=== PATIENT | female | born 1975 | race Caucasian/White ===

== ENCOUNTER 2019-05-03 03:28 | Emergency (ER) | payer OTHER ==
[2019-05-03 04:00] VITALS: RESP 18
[2019-05-03] MEDS ORDERED: SODIUM CHLORIDE 0.9% 1,000 ML IV STA (04:43)
--- NOTE | 2019-05-03 04:48 | ED ---
Abdominal Pain HPI - General Chief Complaint: Abdominal Pain Stated Complaint: Upper Abd Pain Time Seen by Provider: 05/03/19 04:11 Source: patient Mode of arrival: ambulatory Limitations: no limitations - History of Present Illness Initial Comments: Patient is a 43-year-old female presenting to the emergency department with chief complaint of abdominal pain. Patient reports epigastric abdominal pain that has been on and off for about 5 days. Patient reports the pain appears to be at night after she sleeps or couple hours. Patient does have a known hiatal hernia. Patient reports the pain is not related to food intake. Patient reports when the onset of pain is the pain is about 8 but now it is only a 4. Patient denies any nausea vomiting or diarrhea. Patient denies any vaginal discharge or bleeding. Patient denies any chance for possible . Patient denies increased urgency frequency or dysuria. Patient had a previous , cholecystectomy, appendix repair, endometriosis and a large right ovarian cyst. - Related Data Allergies Allergy/AdvReac Type Severity Reaction Status Date / Time azithromycin Allergy Nausea & Verified 05/03/19 04:01 Vomiting & Diarrhea Penicillins Allergy Rash/Hives Verified 05/03/19 04:01 Review of Systems ROS Statement: Those systems with pertinent positive or pertinent negative responses have been documented in the HPI. ROS Other: All systems not noted in ROS Statement are negative. Past Medical History Past Medical History: Diabetes Mellitus Additional Past Medical History / Comment(s): hiatal hernia History of Any Multi-Drug Resistant Organisms: None Reported Past Surgical History: Section, Cholecystectomy, Orthopedic Surgery Past Psychological History: No Psychological Hx Reported Smoking Status: Never smoker Past Alcohol Use History: None Reported Past Drug Use History: None Reported General Exam Limitations: no limitations General appearance: alert, in no apparent distress Head exam: Present: atraumatic, normocephalic, normal inspection Eye exam: Present: normal appearance, PERRL, EOMI Pupils: Present: normal accommodation ENT exam: Present: normal exam, normal oropharynx, mucous membranes moist, TM's normal bilaterally, normal external ear exam Neck exam: Present: normal inspection, full ROM Respiratory exam: Present: normal lung sounds bilaterally Cardiovascular Exam: Present: regular rate, normal rhythm, normal heart sounds GI/Abdominal exam: Present: soft, tenderness (Mild epigastric tenderness), normal bowel sounds. Absent: distended, guarding, rebound, mass, pulsatile mass, hernia Extremities exam: Present: normal inspection, full ROM, normal capillary refill, other (+2 ulnar radial pulses bilaterally.) Back exam: Present: normal inspection, full ROM Neurological exam: Present: alert, oriented X3 Psychiatric exam: Present: normal affect, normal mood Skin exam: Present: warm, intact, normal color Course Vital Signs 05/03/19 05/03/19 03:56 05:12 Temperature 97.5 F L 98.7 F Pulse Rate 82 68 Respiratory 18 18 Rate Blood Pressure 146/94 123/84 O2 Sat by Pulse 100 96 Oximetry Medical Decision Making - Medical Decision Making Patient is a 43-year-old female presenting to the emergency department with a chief complaint of abdominal pain. Patient reports the pain is in the epigast ebonie region and it only happens at night after she was asleep for a couple hours. Patient does have an established or hernia. Patient does any nausea vomiting or diarrhea. Patient isn't have any urinary symptoms. Patient reports the pain is not related to food intake. Patient denies any fevers or chills. Labs are unremarkable. CT is indicative of bilateral nonobstructing renal calculi. Blanca ent does have a small hiatal hernia. I suspect the pain the patient is experiencing to be due to the hiatal hernia as it only happens after she sleeps a couple of hours. Patient advised to follow-up with primary care. Patient advised to keep the bed elevated and night in order to help prevent her symptoms. Strict return parameters were thoroughly discussed the patient was understanding and agreeable. Case discussed with physician. - Lab Data Result diagrams: 05/03/19 04:18 05/03/19 04:18 Lab Results 05/03/19 05/03/19 05/03/19 Range/Units 04:18 04:18 05:43 WBC 8.6 (3.8-10.6) k/uL RBC 4.74 (3.80-5.40) m/uL Hgb 13.7 (11.4-16.0) gm/dL Hct 39.2 (34.0-46.0) % MCV 82.7 (80.0-100.0) fL MCH 28.9 (25.0-35.0) pg MCHC 34.9 (31.0-37.0) g/dL RDW 15.4 (11.5-15.5) % Plt Count 143 L (150-450) k/uL Neutrophils % 66 % Lymphocytes % 20 % Monocytes % 5 % Eosinophils % 7 % Basophils % 1 % Neutrophils # 5.6 (1.3-7.7) k/uL Lymphocytes # 1.7 (1.0-4.8) k/uL Monocytes # 0.4 (0-1.0) k/uL Eosinophils # 0.6 (0-0.7) k/uL Basophils # 0.1 (0-0.2) k/uL Sodium 136 L (137-145) mmol/L Potassium 4.2 (3.5-5.1) mmol/L Chloride 100 (98-107) mmol/L Carbon Dioxide 26 (22-30) mmol/L Anion Gap 10 mmol/L BUN 16 (7-17) mg/dL Creatinine 0.77 (0.52-1.04) mg/dL Est GFR (CKD-EPI)AfAm >90 (>60 ml/min/1.73 sqM) Est GFR (CKD-EPI)NonAf >90 (>60 ml/min/1.73 sqM) Glucose 184 H (74-99) mg/dL Calcium 9.3 (8.4-10.2) mg/dL Total Bilirubin 0.2 (0.2-1.3) mg/dL AST 24 (14-36) U/L ALT 26 (9-52) U/L Alkaline Phosphatase 80 (38-126) U/L Total Protein 6.7 (6.3-8.2) g/dL Albumin 3.8 (3.5-5.0) g/dL Amylase 44 (30-110) U/L Lipase 238 (23-300) U/L Urine Color Light Yellow Urine Appearance Clear (Clear) Urine pH 6.5 (5.0-8.0) Ur Specific Chapman 1.015 (1.001-1.035) Urine Protein Negative (Negative) Urine Glucose (UA) Negative (Negative) Urine Ketones Negative (Negative) Urine Blood Negative (Negative) Urine Nitrite Negative (Negative) Urine Bilirubin Negative (Negative) Urine Urobilinogen <2.0 (<2.0) mg/dL Ur Leukocyte Esterase Negative (Negative) Disposition Clinical Impression: Hiatal hernia Disposition: HOME SELF-CARE Condition: Stable Instructions (If sedation given, give patient instructions): Hiatal Hernia (DC) Additional Instructions: Please follow with primary care. Please keep that elevated when sleeping at night. Please return to emergency department if symptoms worsen. Is patient prescribed a controlled substance at d/c from ED?: No Referrals: Mary Heath MD [Primary Care Provider] - 1-2 days Time of Disposition: 06:33
[2019-05-03 04:49] LABS: ALT 26 U/L (9-52); AST 24 U/L (14-36); African American GFR (CKD) >90 (>60 ml/min/1.73 sqM); Albumin 3.8 g/dL (3.5-5.0); Alkaline Phosphatase 80 U/L (38-126); Amylase 44 U/L (30-110); Anion Gap 10 mmol/L; Blood Urea Nitrogen 16 mg/dL (7-17); Calcium 9.3 mg/dL (8.4-10.2); Carbon Dioxide 26 mmol/L (22-30); Chloride 100 mmol/L (98-107); Glucose 184 mg/dL (74-99); Potassium 4.2 mmol/L (3.5-5.1); Sodium 136 mmol/L (137-145); Total Bilirubin 0.2 mg/dL (0.2-1.3); Total Protein 6.7 g/dL (6.3-8.2)
[2019-05-03 05:03] LABS: Basophils # (A) 0.1 k/uL (0-0.2); Basophils % (A) 1 %; Eosinophils # (A) 0.6 k/uL (0-0.7); Eosinophils % (A) 7 %; HCT 39.2 % (34.0-46.0); HGB 13.7 gm/dL (11.4-16.0); Lymphocytes # (A) 1.7 k/uL (1.0-4.8); Lymphocytes % (A) 20 %; MCH 28.9 pg (25.0-35.0); MCHC 34.9 g/dL (31.0-37.0); MCV 82.7 fL (80.0-100.0); Mean Platelet Volume 6.8; Monocytes # (A) 0.4 k/uL (0-1.0); Monocytes % (A) 5 %; Neutrophils # (A) 5.6 k/uL (1.3-7.7); Neutrophils % (A) 66 %; Platelet Count 143 k/uL (150-450); RBC 4.74 m/uL (3.80-5.40); RDW 15.4 % (11.5-15.5); WBC 8.6 k/uL (3.8-10.6)
[2019-05-03 06:01] LABS: Appearance,Urine Clear (Clear); Bilirubin,Urine Negative (Negative); Blood,Urine Negative (Negative); Color,Urine Light Yellow; Glucose,Urine (UA) Negative (Negative); Ketones,Urine Negative (Negative); Leukocyte Esterase,Urine Negative (Negative); Nitrite,Urine Negative (Negative); PH, Urine 6.5 (5.0-8.0); Protein,Urine Negative (Negative); Specific Gravity,Urine 1.015 (1.001-1.035); Urobilinogen,Urine <2.0 mg/dL (<2.0)
--- NOTE | 2019-05-03 06:05 | CT ---
EXAM: CT Abdomen and Pelvis With Intravenous Contrast CLINICAL HISTORY: Epigastric pain. TECHNIQUE: Axial computed tomography images of the abdomen and pelvis with intravenous contrast. CTDI is 27.1 mGy and DLP is 476.7 mGy-cm. This CT exam was performed using one or more of the following dose reduction techniques: automated exposure control, adjustment of the mA and/or kV according to patient size, and/or use of iterative reconstruction technique. COMPARISON: None. FINDINGS: Lung bases: Unremarkable. No mass. No consolidation. Pleural space: No pulmonary nodules or pleural effusions at the lung bases. Heart: Heart is normal in size Mediastinum: Small hiatal hernia ABDOMEN: Liver: Mild fatty infiltration of the liver. Gallbladder and bile ducts: Status post cholecystectomy No ductal dilation. Pancreas: Unremarkable. No mass. No ductal dilation. Spleen: Numerous indeterminate splenic hypodensities are noted of uncertain etiology. Hounsfield measurements do not indicate simple cyst. Further workup is necessary. Magnetic resonance imaging of the abdomen with gadolinium and demonstration dynamic imaging is advised for further evaluation of the spleen. Adrenals: Unremarkable. No mass. Kidneys and ureters: No hydronephrosis. A 0.3 cm nonobstructing calculus in the lower pole region of the right kidney is noted. A second 0.2 cm nonobstructing calculus in the lower pole region of the right kidney is noted. A 0.2 cm nonobstructing calculus in the lower pole region of the left kidney is noted. Stomach and bowel: Small bowel loops are noted centrally within the abdomen extending to the left hypogastrium, best seen on series 202 image 54 with minimally thickened duncan. Early inflammatory or infectious etiologies cannot be excluded. Ischemic etiology is felt to be unlikely. No obstruction. PELVIS: Appendix: The appendix is best seen on series 201 image 69 and is unremarkable. Bladder: The bladder is grossly unremarkable. Reproductive: A 2.4 cm right ovarian cyst is noted. ABDOMEN and PELVIS: Intraperitoneal space: Unremarkable. No free air. No significant fluid collection. Bones/joints: Probable bone islands right femoral head. Mild osteoarthritic changes about the sacroiliac joints. No acute fracture. No dislocation. Soft tissues: Unremarkable. Vasculature: Unremarkable. No abdominal aortic aneurysm. Lymph nodes: Unremarkable. No enlarged lymph nodes. IMPRESSION: Small hiatal hernia. Focal splenic abnormalities of uncertain etiology. Magnetic resonance imaging of the abdomen with gadolinium administration and dynamic imaging is advised for further evaluation of the spleen. Mild fatty infiltration of the liver. Bilateral nonobstructing renal calculi. The appendix is normal. Diverticulosis without diverticulitis. Small bowel loops with minimally thickened duncan posteriorly based on early enteritis as discussed above. Simple right ovarian cyst based on Hounsfield evaluation.
[2019-05-03 06:34] VITALS: BP 116/54; PULSE 72; TEMP 98.2
== END 2019-05-03 06:50 | disposition home or self-care (01) ==
LOC: EC 03:28
DX: K44.9 Diaphragmatic hernia without obstruction or gangrene (principal); N20.0 Calculus of kidney; Z88.0 Allergy status to penicillin; Z88.1 Allergy status to other antibiotic agents; Z90.49 Acquired absence of other specified parts of digestive tract
CPT/HCPCS: 36415; 80053; 82150; 83690; 85025; 81003; 74177; 99284; 96360; Q9967

== ENCOUNTER 2019-06-02 08:30 | Day surgery (SDC) | payer OTHER ==
[2019-05-29 14:31] VITALS: BMI 32.8
[~2019-06-02 08:30] MED LIST: LACTATED RINGERS 1,000 ML IV SCH; LIDOCAINE 1% 20 ML VIAL (10MG/ML) FOR IV START INTRADERMA PRN
[2019-06-02 09:04] LABS: Glucose,Whole Blood 148 mg/dL (75-99)
[2019-06-02 09:05] VITALS: RESP 16; TEMP 97.3
[2019-06-02] MEDS ORDERED: fentaNYL (PF) 50 MCG/ML 2 ML AMP ONE (09:07)
[2019-06-02] MEDS ORDERED: MIDAZOLAM 2 MG/2 ML VIAL ONE (09:07)
[2019-06-02] MEDS ORDERED: PROPOFOL 10 MG/ML 20 ML VIAL IV ONE (09:07)
--- NOTE | 2019-06-02 09:44 | P.PCN ---
Date of Procedure: 06/02/19 Description of Procedure: BRIEF HISTORY: 43-year-old female who presents for outpatient EGD. The patient had been seen in clinic where she complained of epigastric abdominal pain. She is known history of a small hiatal hernia and also reported symptoms of belching, bilateral upper abdominal pain and reflux. PROCEDURE PERFORMED: Esophagogastroduodenoscopy with biopsy. PREOPERATIVE DIAGNOSIS: Epigastric abdominal pain. ESTIMATED BLOOD LOSS: Minimal. IV sedation per anesthesia. PROCEDURE: After informed consent was obtained, the patient was brought into the endoscopy unit. IV sedation was administered by Anesthesia under continuous monitoring. Initially the Olympus GIF-190 video endoscope was inserted into the mouth. Esophagus intubated without any difficulty. It was gradually advanced into the stomach and duodenum and carefully examined. The bulb and the second part of the duodenum appeared normal, with biopsies taken. The scope at this time was withdrawn to the stomach, adequately insufflated with air, and upon careful examination, mucosa of the antrum, body, cardia and the fundus appeared normal, except for some scattered erythema in the antrum and body suggestive of mild gastritis with biopsies taken. The scope was then withdrawn into the esophagus. The GE junction was located at 39 cm from the incisors, with a small 1 cm hiatal hernia noted. The esophagus appeared normal. There were no erosions or ulcerations seen and the patient tolerated the procedure well. IMPRESSION: 1. Mild gastritis antrum and body, biopsied. 2. Small hiatal hernia. 3. Duodenal biopsies. RECOMMENDATIONS: The findings of this examination were discussed with the patient and her boyfriend. Okay to resume diet. Okay to resume medications. Follow up with gastroenterology as previously scheduled. Await pathology from biopsies.
[2019-06-02 09:52] VITALS: BP 117/79; PULSE 74
== END 2019-06-02 10:35 | disposition home or self-care (01) ==
LOC: ORWHC2ENDO 08:30
PROVIDERS: ATTEND Internal Medicine
DX: K31.7 Polyp of stomach and duodenum (principal); K29.50 Unspecified chronic gastritis without bleeding; K44.9 Diaphragmatic hernia without obstruction or gangrene; I10 Essential (primary) hypertension; E11.9 Type 2 diabetes mellitus without complications; E07.9 Disorder of thyroid, unspecified; K21.9 Gastro-esophageal reflux disease without esophagitis; I25.2 Old myocardial infarction; Z90.49 Acquired absence of other specified parts of digestive tract; Z79.84 Long term (current) use of oral hypoglycemic drugs; Z79.890 Hormone replacement therapy; Z79.899 Other long term (current) drug therapy
CPT/HCPCS: 81025; 88305; 43239; J2250; J3010; J2704

== ENCOUNTER → 2019-06-08 | Outpatient (CLI) | payer OTHER ==
--- NOTE | 2019-06-09 00:45 | MR ---
EXAMINATION TYPE: MR abdomen wo/w con DATE OF EXAM: 06/08/2019 COMPARISON: CT scan 05/03/2019 HISTORY: Abnormal findings on DI imaging abd region, pain CONTRAST: Standard multiplanar, multisequence MRI departmental protocol utilizing 9 mL intravenous Gadavist merlyn olinium contrast. FINDINGS: Liver has fairly normal size and contour. There are no focal defect. Bile ducts are not dil ated. There is no sign of pleural effusion. Stomach appears normal. There is no evidence of pancreati c mass. There is no adrenal mass. Kidneys show normal size and contour. There is satisfactory contrast opacif ication of the kidneys. There is no hydronephrosis. There is no retroperitoneal adenopathy. There are multiple variable-sized high signal foci on the T2 images in the spleen. Most of these are small and the largest measures 17 mm. There is some internal nodularity on the T2 images. The contrast images appeared to show progressive enhancement of the nodules on the delayed images. Th is is consistent with multiple hemangiomata. There is no sign of ascites. Heart size is normal. IMPRESSION: Multiple small lesions in the spleen have enhancement features consistent with multiple hemangiomata.
== END | disposition home or self-care (01) ==
LOC: RADMRIMAIN 11:01
PROVIDERS: ATTEND Nurse Practitioner
DX: D73.89 Other diseases of spleen (principal)
CPT/HCPCS: 74183; A9585

== ENCOUNTER → 2019-06-12 | Outpatient (CLI) | payer OTHER ==
--- NOTE | 2019-06-15 09:00 | MM ---
Reason for exam: screening (asymptomatic). Last mammogram was performed 2 years and 3 months ago. History: Patient is nulliparous. Family history of breast cancer in mother at age 48. Taking hormonal contraceptives for 2 years. Physical Findings: A clinical breast exam by your physician is recommended on an annual basis and results should be correlated with mammographic findings. MG 3D Screening Mammo W/Cad Bilateral CC and MLO view(s) were taken. Prior study comparison: March 11, 2017, mammogram. The breast tissue is heterogeneously dense. This may lower the sensitivity of mammography. Increasing density of a left upper outer quadrant focal asymmetry 11-12cm from nipple. ASSESSMENT: Incomplete: need additional imaging evaluation, BI-RAD 0 RECOMMENDATION: Ultrasound of the left breast. [facility] will attempt to contact patient to return for ultrasound.
== END | disposition home or self-care (01) ==
LOC: RADMAMWWP 07:36
PROVIDERS: ATTEND Family Medicine
DX: Z12.31 Encounter for screening mammogram for malignant neoplasm of breast (principal)
CPT/HCPCS: 77063; 77067

== ENCOUNTER → 2019-06-13 | Outpatient (CLI) | payer OTHER ==
--- NOTE | 2019-06-13 20:12 | MR ---
EXAMINATION TYPE: MR brain wo con DATE OF EXAM: 06/13/2019 COMPARISON: HISTORY: Headache Standard multiplanar, multisequence MRI departmental protocol Multiplanar, multisequence images of the were acquired. Diffusion weighted imaging was performed. FINDINGS: Ventricles and sulci appear normal. There is no mass effect nor midline shift. There is no sign of intracranial hemorrhage. On the T2 and FLAIR images there are multiple small foci of increase d signal in the roach-white matter junction of both occipital and posterior parietal lobes. Total numb er is approximately 15 and these measure up to 6 mm. Most of the lesions are less than 4 mm. Brainstem is intact. Corpus callosum is intact. Sella turcica appears normal. IMPRESSION: White matter lesions in both cerebral hemispheres that are more concentrated in the occipital and pos terior parietal lobes. This is nonspecific and I would consider possibilities of vasculitis and chron ic small vessel ischemia. Lesions are not typical of demyelinating disease and are remote from the ve ntricles.
== END | disposition home or self-care (01) ==
LOC: RADMRIMAIN 10:16
PROVIDERS: ATTEND Nurse Practitioner Family
DX: I67.82 Cerebral ischemia (principal); R90.82 White matter disease, unspecified
CPT/HCPCS: 70551

== ENCOUNTER → 2019-06-30 | Outpatient (CLI) | payer OTHER ==
--- NOTE | 2019-06-30 08:25 | USB ---
Reason for exam: additional evaluation requested from abnormal screening. History: Patient is nulliparous. Family history of breast cancer in mother at age 48. Taking hormonal contraceptives for 2 years. Physical Findings: Nurse did not find any significant physical abnormalities on exam. US Breast Workup Limited LT Left limited breast ultrasound including focal area of concern, retroareolar and axilla demonstrates island of dense tissue at 2 o'clock corresponds with mammographic finding. Precautionary 6 month follow up mammogram recommended given the new more rounded morphology of the left upper outer quadrant focal asymmetry seen back to 2017. These results were verbally communicated with the patient and result sheet given to the patient on 06/30/19. ASSESSMENT: Probably benign, BI-RAD 3 RECOMMENDATION: Follow-up diagnostic mammogram of the left breast in 6 months.
== END | disposition home or self-care (01) ==
LOC: RADUSWWP 06:46
PROVIDERS: ATTEND Family Medicine
DX: R92.8 Other abnormal and inconclusive findings on diagnostic imaging of breast (principal)

== ENCOUNTER → 2019-08-04 | Outpatient (CLI) | payer OTHER ==
--- NOTE | 2019-08-04 09:10 | MR ---
EXAMINATION TYPE: MR angio head wo con DATE OF EXAM: 08/04/2019 COMPARISON: MRI brain June 13, 2019 HISTORY: Atypical Migraine TECHNIQUE: Time of flight images focusing on the [place] were performed without contrast.. 2-D and 3-D postprocessing imaging is performed on independent workstation and reviewed. FINDINGS: There is dominant right vertebral artery. Vertebral arteries are patent to basilar junction . There is no significant focal stenosis or aneurysmal change in the posterior circulation. Patent ri ght posterior communicating artery. Hypoplastic left P1 segment with filling of left P2 segment due t o patent left posterior communicating artery. Images of the anterior circulation fail to show patent anterior communicating artery presumed hypopl astic. There is no significant focal stenosis or aneurysmal change seen. IMPRESSION: No aneurysmal change at the level of the [place].
== END | disposition home or self-care (01) ==
LOC: RADMRIMAIN 08:26
PROVIDERS: ATTEND Psychiatry & Neurology Neurology
DX: G43.009 Migraine without aura, not intractable, without status migrainosus (principal)
CPT/HCPCS: 70544

== ENCOUNTER 2020-02-01 06:41 | Day surgery (SDC) | payer OTHER ==
[2020-01-29 10:20] VITALS: BMI 32.9
[~2020-02-01 06:41] MED LIST changes: -LIDOCAINE 1% 20 ML VIAL (10MG/ML) FOR IV START INTRADERMA PRN
[2020-02-01 07:17] VITALS: TEMP 97.2
[2020-02-01 07:30] LABS: Glucose,Whole Blood 165 mg/dL (75-99)
[2020-02-01] MEDS ORDERED: PROPOFOL 10 MG/ML 20 ML VIAL IV ONE (07:30)
--- NOTE | 2020-02-01 08:07 | P.PCN ---
Date of Procedure: 02/01/20 Description of Procedure: BRIEF HISTORY: Patient is a 44-year-old female presenting for outpatient colonoscopy for follow-up of a history of colon polyps. Reports last colonoscopy approximately 3 years ago with multiple polyps including large polyps removed. PROCEDURE PERFORMED: Colonoscopy with polypectomy. PREOPERATIVE DIAGNOSIS: History of colon polyps, last colonoscopy 2016. ESTIMATED BLOOD LOSS: Minimal. IV sedation per Anesthesia. PROCEDURE: After informed consent was obtained, the patient, was brought into the endoscopy unit. IV sedation was administered by Anesthesia under continuous monitoring. Digital rectal examination was normal. Initially the Olympus CF-190 flexible video colonoscope was then inserted in the rectum, gradually advanced into the cecum without any difficulty. Careful examination was performed as the scope was gradually being withdrawn. Ileocecal valve and the appendiceal orifice were visualized and appeared normal. Prep was excellent. Mucosa of the cecum, ascending colon, transverse colon, descending colon, sigmoid colon, and rectum appeared normal. 4 diminutive colon polyps measuring 1-2 mm in size removed from the cecum, ileocecal valve, ascending colon and descending colon with cold forcep polypectomy. Retroflexion was performed in the rectum and no lesions were seen, low-grade internal hemorrhoids visualized. The patient tolerated the procedure well. IMPRESSION: 4 diminutive colon polyps removed with cold forceps from the cecum, ileocecal valve, ascending colon and descending colon. Otherwise, normal-appearing colon from rectum to cecum . RECOMMENDATIONS: Findings of this examination were discussed with the patient and her family. Okay to resume diet. Okay to resume medications. Await pathology from polypectomies. Would recommend repeat colonoscopy in 3 years pending pathology from polypectomy.
[2020-02-01 08:21] VITALS: BP 124/82; PULSE 81; RESP 16
== END 2020-02-01 08:42 | disposition home or self-care (01) ==
LOC: ORWHC2ENDO 06:41
PROVIDERS: ATTEND Internal Medicine
DX: Z12.11 Encounter for screening for malignant neoplasm of colon (principal); D12.0 Benign neoplasm of cecum; D12.4 Benign neoplasm of descending colon; K63.5 Polyp of colon; K64.8 Other hemorrhoids; Z86.010 Personal history of colon polyps; G47.33 Obstructive sleep apnea (adult) (pediatric); E11.9 Type 2 diabetes mellitus without complications; F41.9 Anxiety disorder, unspecified; F32.9 Major depressive disorder, single episode, unspecified; G43.909 Migraine, unspecified, not intractable, without status migrainosus; K21.9 Gastro-esophageal reflux disease without esophagitis; Z88.0 Allergy status to penicillin; Z88.1 Allergy status to other antibiotic agents; Z99.89 Dependence on other enabling machines and devices; Z87.442 Personal history of urinary calculi; Z79.84 Long term (current) use of oral hypoglycemic drugs; Z79.890 Hormone replacement therapy; Z79.899 Other long term (current) drug therapy; Z90.49 Acquired absence of other specified parts of digestive tract; Z90.721 Acquired absence of ovaries, unilateral; Z80.3 Family history of malignant neoplasm of breast
CPT/HCPCS: 81025; 88305; 45380; J2704

== ENCOUNTER → 2020-03-17 | Outpatient (CLI) | payer OTHER ==
[2020-03-17 14:46] VITALS: BP 123/66; PULSE 87; RESP 16; TEMP 98.4
--- NOTE | 2020-03-17 15:11 | P.PAINCN ---
History of Present Illness - Reason for Consult Consult date: 03/17/20 - History of Present Illness This is a 44-year-old patient referred by Dr. Patterson'araceli with a chief complaint of occipital headache. Patient has been having headache for a couple of years now. The headache is located diffusely throughout her head but makes mainly focused in the frontal and occipital region. Occasionally she'll feel sharp pain in her occipital region radiating to the crown of her head. She also complains of a stiff neck with occasional pain in her shoulders. Alleviating factors include heat and taking Naprosyn when necessary. Exacerbating factors include noise. Currently an 8 out of 10. Medication zapata she takes Fiorinal and cyproheptadine had. He is taking Topamax in the past that she has a history of glaucoma and kidney stones they took her off that. Other than that she is following up for neurology for chronic daily migraine headaches. She was referred by Dr. Mcclain. Consideration of occipital nerve block In addition to above, 13-point review of systems is also negative for chest pain, shortness of breath, changes in vision, changes in hearing, new onset weakness, abdominal pain, diarrhea, extreme fatigue, malaise, fever, skin changes, homicidal or suicidal ideation, or bowel or bladder incontinence. Physical exam: Vital Signs: Reviewed in EMR GENERAL: Well appearing, in no acute distress PSYCH: Mood and affect is appropriate. Awake, alert, and oriented SKIN: Skin color, texture, turgor normal, no rashes or lesions HEENT: Normocephalic, atraumatic. EOM intact CV: No pedal edema RESP: Respirations are unlabored, no audible wheezing GI: Abdomen non-distended MUSCULOSKELETAL: Bilateral upper and lower extremity strength is normal and symmetric. No atrophy or tone abnormalities are noted. Neck: Mild pain to palpation over the cervical paraspinous muscles. Spurling negative, Axial Loading Test negative, Marshall's sign negative. No pain with neck flexion, extension, or lateral flexion. No obvious deformity or signs of trauma. Normal cervical lordotic curve and normal cervical spine range of motion. Normal range of motion without pain reproduction Extremities: Peripheral joint ROM is full and pain free without obvious instability or laxity in all four extremities. No edema or skin discolorations noted. Gait: Gait is normal NEUR: Bilateral upper and lower extremity coordination and muscle stretch reflexes are physiologic and symmetric. Negative clonus. No loss of sensation is noted. Cranial nerves are grossly intact. Assessment: 1. Occipital neuralgia 2. Daily migraine headache Plan: 1. Explanation: Diagnoses, prognoses, and multiple treatment options including but not limited to physical therapy, interventional therapies, medication management and surgery were discussed with the patient and all questions were answered to the patient's satisfaction. 2. Investigations: If occipital nerve block is not effective would recommend ordering a cervical MRI. Given that she is having pain in her head and neck and shoulders it is possible that her pain is being mediated from the cervical facet joints. 3. Counseling: The patient was counseled for 3 minutes on EXERCISE. Specifically, the patient was instructed regarding the importance of weight control, and exercise in the context of both chronic pain and overall health. 4. Procedures: Performed bilateral occipital nerve block. Consider cervical medial branch workup if occipital nerve block is ineffective 5. Consultations: None 6. Medications: None 7. Disposition: After procedure Past Medical History Past Medical History: Diabetes Mellitus, Thyroid Disorder Additional Past Medical History / Comment(s): hiatal hernia, PCOS,diverticulitis, 3 small kidney stones History of Any Multi-Drug Resistant Organisms: None Reported Past Surgical History: Section, Cholecystectomy, Orthopedic Surgery Additional Past Surgical History / Comment(s): 1 ovary removed, pinky toe lt foot screws and plate in place Past Anesthesia/Blood Transfusion Reactions: Previous Problems w/ Anesthesia Additional Past Anesthesia/Blood Transfusion Reaction / Comm: "took a little longer to come out of anesthesia when ovary was removed". "had small little purple dots on my face after my upper scope and took 1 week to resolve" Past Alcohol Use History: None Reported - Past Family History Mother Family Medical History: Cancer Additional Family Medical History / Comment(s): breast cancer Medications and Allergies Home Medications Medication Instructions Recorded Confirmed Type Blisovi Fe 1 tab PO DAILY 05/29/19 03/17/20 History Butalb/Asprin/Caff 50-325-40Mg 1 - 2 cap PO DAILY PRN 05/29/19 03/17/20 History [Fiorinal 50-325-40 MG] Cinnamon Bark [Cinnamon] 2,000 mg PO BID 05/29/19 03/17/20 History Levothyroxine Sodium [Synthroid] 100 mcg PO DAILY 05/29/19 03/17/20 History Melatonin 5 mg PO HS 05/29/19 03/17/20 History Multivitamins, Thera [Multivitamin 1 tab PO DAILY 05/29/19 03/17/20 History (formulary)] Passion Flower 500 mg PO HS 05/29/19 03/17/20 History Simethicone [Gas-X] 2 tab PO DAILY 05/29/19 03/17/20 History lisinopriL [Zestril] 2.5 mg PO DAILY 05/29/19 03/17/20 History metFORMIN HCL [Glucophage] 1,000 mg PO DAILY 05/29/19 03/17/20 History Calcium Carbonate [Tums] 500 mg PO TID PRN 01/29/20 03/17/20 History Famotidine [Pepcid] 10 mg PO DAILY 01/29/20 03/17/20 History Latanoprost [Xalatan 0.005%] 1 drop BOTH EYES HS 01/29/20 03/17/20 History Pioglitazone [Actos] 15 mg PO DAILY 01/29/20 03/17/20 History Ciprofloxacin-Dexameth [Ciprodex 4 drops LEFT EAR BID 03/16/20 03/17/20 History Otic Susp] Cypro Heptad 4 mg PO HS 03/16/20 03/17/20 History Omeprazole [PriLOSEC] 20 mg PO AC-BRKFST 03/16/20 03/17/20 History Allergies Allergy/AdvReac Type Severity Reaction Status Date / Time erythromycin base Allergy Unknown Nausea & Verified 03/17/20 14:06 Vomiting & Diarrhea Penicillins Allergy Rash/Hives Verified 03/17/20 14:06 PQRS Measure Charge Sheet Measure #226: Tobacco Use: Screen & Cessation Intervention: Pt not a tobacco user Measure #111: Pneumonia Vaccination: Pneumococcal vaccine NOT administered or previously given Measure #47: Advance Care Plan: Advance care planning discussed & documented, pt chose/unable to give Measure #412: Opioid Treatment Agreement: No documentation of signed opioid treatment agreement Measure #408: Opioid Therapy Follow-up Evaluation: Patient had NO f/u eval minimum every 3 months during opioid therapy Measure #317: Preventitive Care & Scrn High Bld Press & F/U: Normal blood pressure, f/u not required Measure #128: Body Mass Index (BMI) Screening & Follow-up: BMI documented ABOVE normal parameters - f/u documented Measure #131: Pain Assessment & Follow-up: Pain positive & plan documented, Follow-up scheduled Measure #431: Unhealthy Alcohol Use Preventative Care & Scrn: Patient not identified as an unhealthy alcohol user PQRS Narrative: Smoking Status Never smoker Home Medications: Ambulatory Orders Blisovi Fe 1 tab PO DAILY 05/29/19 Butalb/Asprin/Caff 50-325-40Mg [Fiorinal 50-325-40 MG] 1 - 2 cap PO DAILY PRN 05/29/19 Cinnamon Bark [Cinnamon] 2,000 mg PO BID 05/29/19 Levothyroxine Sodium [Synthroid] 100 mcg PO DAILY 05/29/19 Melatonin 5 mg PO HS 05/29/19 Multivitamins, Thera [Multivitamin (formulary)] 1 tab PO DAILY 05/29/19 Passion Flower 500 mg PO HS 05/29/19 Simethicone [Gas-X] 2 tab PO DAILY 05/29/19 lisinopriL [Zestril] 2.5 mg PO DAILY 05/29/19 metFORMIN HCL [Glucophage] 1,000 mg PO DAILY 05/29/19 Calcium Carbonate [Tums] 500 mg PO TID PRN 01/29/20 Famotidine [Pepcid] 10 mg PO DAILY 01/29/20 Latanoprost [Xalatan 0.005%] 1 drop BOTH EYES HS 01/29/20 Pioglitazone [Actos] 15 mg PO DAILY 01/29/20 Ciprofloxacin-Dexameth [Ciprodex Otic Susp] 4 drops LEFT EAR BID 03/16/20 Cypro Heptad 4 mg PO HS 03/16/20 Omeprazole [PriLOSEC] 20 mg PO AC-BRKFST 03/16/20
== END | disposition home or self-care (01) ==
LOC: PNWHC3 13:56
PROVIDERS: ATTEND Anesthesiology
DX: M54.81 Occipital neuralgia (principal); G43.909 Migraine, unspecified, not intractable, without status migrainosus; E11.9 Type 2 diabetes mellitus without complications; Z79.891 Long term (current) use of opiate analgesic; E07.9 Disorder of thyroid, unspecified; Z88.1 Allergy status to other antibiotic agents; Z79.899 Other long term (current) drug therapy; Z79.890 Hormone replacement therapy; Z79.84 Long term (current) use of oral hypoglycemic drugs; Z88.0 Allergy status to penicillin
CPT/HCPCS: 99211

== ENCOUNTER → 2020-03-21 | Outpatient (CLI) | payer OTHER ==
--- NOTE | 2020-03-22 11:01 | MM ---
Reason for exam: additional evaluation requested from prior study. Last mammogram was performed 9 months ago. History: Patient is nulliparous. Family history of breast cancer in mother at age 48. Taking hormonal contraceptives for 3 years beginning at age 41. Physical Findings: Nurse did not find any significant physical abnormalities on exam. MG 3D Diag Mammo W/Cad LT CC and MLO view(s) were taken of the left breast. Prior study comparison: June 12, 2019, bilateral MG 3d screening mammo w/cad. March 11, 2017, mammogram. The breast tissue is heterogeneously dense. This may lower the sensitivity of mammography. Finding: There are typically benign regional calcifications in the left breast. Asymmetric breast tissue left posterior upper outer quadrant. There is no discrete abnormality. These results were verbally communicated with the patient and result sheet given to the patient on 03/21/20. ASSESSMENT: Benign, BI-RAD 2 RECOMMENDATION: Return to routine screening mammogram schedule for both breasts. Back on schedule.
== END | disposition home or self-care (01) ==
LOC: RADMAMWWP 14:45
PROVIDERS: ATTEND Family Medicine
DX: R92.2 Inconclusive mammogram (principal); R92.8 Other abnormal and inconclusive findings on diagnostic imaging of breast
CPT/HCPCS: 77065; G0279; 77061

== ENCOUNTER 2020-04-05 11:45 | Day surgery (SDC) | payer OTHER ==
[2020-03-30 18:29] VITALS: BMI 32.9
[2020-04-05 12:14] VITALS: RESP 16; TEMP 98.7
[2020-04-05] MEDS ORDERED: LIDOCAINE 1% (10MG/ML) FOR IV START INTRADERMA ONE (12:24)
[2020-04-05] MEDS ORDERED: fentaNYL (PF) 50 MCG/ML 2 ML AMP ONE (12:31)
[2020-04-05] MEDS ORDERED: ROPIVACAINE 5MG/ML 20ML VIAL ONE (12:31)
[2020-04-05] MEDS ORDERED: MIDAZOLAM 2 MG/2 ML VIAL ONE (12:31)
--- NOTE | 2020-04-05 12:44 | P.PCN ---
Date of Procedure: 04/05/20 Procedure(s) Performed: Preoperative diagnoses= 1- Greater occipital neuralgia Postoperative diagnoses= same as preoperative diagnosis. Procedure= Bilateral Greater occipital nerve block Anesthesia= moderate sedation with Versed 2 mg and fentanyl 50 micrograms and local infiltration with lidocaine 1% 4 ml Estimated blood loss=minimal. Procedure indication= the patient had a history of severe chronic neck pain ,and headache, diagnosed with occipital neuralgia exam was positive for severe tenderness over the occipital nerve bilaterally, she will be a good candidate occipital nerve block, patient failed conservative management Procedure description= the patient was seen and identified in the preoperative holding area, risks and benefits and alternative of the procedure and possible complications discussed with the patient, and he agreed with the preceding, patient signed the consent, an IV was started, and vital signs were monitored and were stable throughout the procedure, patient was placed in the sitting position or table and the neck area was prepped and draped with a sterile fashi on, vital signs were closely monitored during the procedure, 25-gauge needle advanced 1 inch lateral to the occipital protuberance on the right side, at the location of the right occipital nerve , then after negative aspiration for heme and CSF and there was no paresthesia during the injection, 6 ml of Robivacaine 0.5% injected after negative aspiration, the needle removed, and the entire same procedure was repeated for the left Greater occipital nerve. Patient tolerated the procedure well without any complication, The patient returned to supine position after the back was cleaned and a Band- Aid applied, the patient transported to recovery room in stable condition and he was monitored for 30 minutes before he was discharged home and then patient was reexamined before going home and patient was discharged in stable condition and patient will follow up with the pain clinic in a few weeks.
[2020-04-05] MEDS ORDERED: IV FLUID CONTINUATION 1,000 ML IV ONE (12:48)
[2020-04-05 13:09] VITALS: BP 118/62; PULSE 69
[2020-04-08 07:49] LABS: Glucose,Whole Blood 133 mg/dL (75-99)
== END 2020-04-05 13:19 ==
LOC: ORPAIN 11:45
PROVIDERS: ATTEND Specialist
DX: M54.81 Occipital neuralgia (principal); Z88.0 Allergy status to penicillin; Z88.1 Allergy status to other antibiotic agents
CPT/HCPCS: 81025; 64405; J2250; J3010; J2795

== ENCOUNTER → 2020-05-19 | Day surgery (SDC) | payer OTHER ==
[2020-05-18 09:38] VITALS: BMI 31.6
[~2020-05-19] MED LIST changes: +IV FLUID CONTINUATION 300 ML IV ONE; +MIDAZOLAM 2 MG/2 ML VIAL ONE; +ROPIVACAINE 5MG/ML 20ML VIAL ONE; +fentaNYL (PF) 50 MCG/ML 2 ML AMP ONE
[2020-05-19 08:31] VITALS: RESP 16; TEMP 97.7
[2020-05-19 08:46] LABS: Glucose,Whole Blood 166 mg/dL (75-99)
--- NOTE | 2020-05-19 09:14 | P.PCN ---
Date of Procedure: 05/19/20 Procedure(s) Performed: Preoperative diagnoses= 1- Greater occipital neuralgia Postoperative diagnoses= same as preoperative diagnosis. Procedure= Bilateral Greater occipital nerve block Anesthesia= moderate sedation with Versed 2 mg and fentanyl 50 micrograms and local infiltration with lidocaine 1% 4 ml Estimated blood loss=minimal. Procedure indication= the patient had a history of severe chronic neck pain ,and headache, diagnosed with occipital neuralgia exam was positive for severe tenderness over the occipital nerve bilaterally, she will be a good candidate occipital nerve block, patient failed conservative management Procedure description= the patient was seen and identified in the preoperative holding area, risks and benefits and alternative of the procedure and possible complications discussed with the patient, and he agreed with the preceding, patient signed the consent, an IV was started, and vital signs were monitored and were stable throughout the procedure, patient was placed in the sitting position or table and the neck area was prepped and draped with a sterile fashion, vital signs were closely monitored during the procedure, 25-gauge needle advanced 1 inch lateral to the occipital protuberance on the right side, at the location of the right occipital nerve , then after negative aspiration for heme and CSF and there was no paresthesia during the injection, 6 ml of Robivacaine 0.5% injected after negative aspiration, the needle removed, and the entire same procedure was repeated for the left Greater occipital nerve. Patient tolerated the procedure well without any complication, The patient returned to supine position after the back was cleaned and a Band- Aid applied, the patient transported to recovery room in stable condition and he was monitored for 30 minutes before he was discharged home and then patient was reexamined before going home and patient was discharged in stable condition and patient will follow up with the pain clinic in a few weeks.
[2020-05-19 10:02] VITALS: BP 101/62; PULSE 65
== END ==
LOC: ORPAIN 07:49
PROVIDERS: ATTEND Specialist
DX: G89.29 Other chronic pain (principal); M54.81 Occipital neuralgia; E11.9 Type 2 diabetes mellitus without complications; Z88.0 Allergy status to penicillin; Z88.1 Allergy status to other antibiotic agents
CPT/HCPCS: 81025; 64405; J2250; J3010; J2795

== ENCOUNTER → 2020-06-15 | Outpatient (CLI) | payer OTHER ==
--- NOTE | 2020-06-15 10:30 | P.PN ---
Subjective Progress Note Date: 06/15/20 This is a 45-year-old lady with history of chronic migraine headache. The patient had a diagnostic occipital nerve block bilaterally in our clinic in a few weeks ago. The family did not get better after the blocks. The patient denies any relationship between the headache and the neck movement. She does see an urologist as treatment for her migraine headache. Patient denies new-onset weakness, bowel/bladder incontinence, or any other signs or symptoms of cauda equina syndrome. There are no signs of acute intoxication, and no indications of medication diversion or overuse. In addition to above, 13-point review of systems is also negative for chest pain, shortness of breath, changes in vision, changes in hearing, new onset weakness, abdominal pain, diarrhea, extreme fatigue, malaise, fever, skin changes, homicidal or suicidal ideation, or bowel or bladder incontinence. Vital Signs: Reviewed in EMR Gen: AAOx3, NAD HEENT: PERRLA,hearing grossly normal Pulm: resp unlabored Neck: supple, trachea midline Neuro exam of the lower extremities: Straight leg raising test: Arjun's test: Range of motion of the lumbar spine: Facet loading test: Tenderness in the paravertebral musculature: Neuro: CN II-XII grossly intact, Imaging: Reviewed in EMR/chart Assessment: Migraine headache I do not think that the patient has cervicogenic headache Plan: 1. Explanation: Opioid and psychological risk scores were reviewed. Diagnoses, prognoses, and multiple treatment options including but not limited to physical therapy, interventional therapies, adjuvant medical therapies, narcotic medication therapies, and surgery were discussed with the patient and all questions were answered to the patient's satisfaction. 2. Opioid agreement: Signed with the patient and the patient is warned not to use opioids while driving or before driving and not to combine opioids with benzodiazepines or alcohol. 3. Counseling: The patient was counseled extensively on SMOKING CESSATION, BODY MASS INDEX, EXERCISE. Specifically, the patient was instructed regarding the importance of smoking cessation, obesity, and exercise in the context of both chronic pain and overall health. 4. Procedures: none 5. Consultations: Follow up with neurology 6. Investigations: None 7. Medications: none 8. Disposition: Return to clinic as needed 9. Maps were reviewed and were appropriate. Objective - Vital Signs Vital signs: Intake & Output 06/14/20 06/15/20 06/15/20 18:59 06:59 18:59 Weight 87.767 kg
[2020-06-15 10:32] VITALS: BP 132/80; PULSE 73; RESP 14; TEMP 98
== END | disposition home or self-care (01) ==
LOC: PNWHC3 10:01
PROVIDERS: ATTEND Anesthesiology
DX: G43.909 Migraine, unspecified, not intractable, without status migrainosus (principal)
CPT/HCPCS: 99211

== ENCOUNTER → 2020-09-16 | Outpatient (CLI) | payer OTHER ==
--- NOTE | 2020-09-20 10:23 | MM ---
Reason for exam: screening (asymptomatic). Last mammogram was performed 6 months ago. History: Family history of breast cancer in mother at age 48. Taking hormonal contraceptives for 3 years beginning at age 41. Physical Findings: A clinical breast exam by your physician is recommended on an annual basis and results should be correlated with mammographic findings. MG 3D Screening Mammo W/Cad Bilateral CC and MLO view(s) were taken. Prior study comparison: March 21, 2020, left breast MG 3d diag mammo w/cad LT. June 30, 2019, left breast US breast workup limited LT. June 12, 2019, bilateral MG 3d screening mammo w/cad. March 11, 2017, mammogram. There are scattered fibroglandular densities. Lateral central right CC asymmetric density is more defined but appears to disperse on 3D images. Precautionary 6 month follow up recommended. Stable global asymmetry 9 o'clock left breast. ASSESSMENT: Probably benign, BI-RAD 3 RECOMMENDATION: Follow-up diagnostic mammogram of the right breast in 6 months.
== END | disposition home or self-care (01) ==
LOC: RADMAMWWP 16:53
PROVIDERS: ATTEND Family Medicine
DX: Z12.31 Encounter for screening mammogram for malignant neoplasm of breast (principal)
CPT/HCPCS: 77063; 77067

== ENCOUNTER → 2021-01-13 | Outpatient (CLI) | payer OTHER ==
[2021-01-13 10:28] VITALS: BP 110/74; PULSE 91; RESP 18; TEMP 98.2
--- NOTE | 2021-01-13 10:54 | P.GSHP ---
History of Present Illness H&P Date: 01/13/21 Chief Complaint: abnormal right breast mammogram Catherine is a 45 year old white female seen in consultation for Dr. Heath regarding an abnormal right breast mammogram. Her last bilateral mammogram was on 09-16-20. The patient does not feel any lumps masses or nodules of concern in either breast. She's not complaining of any nipple discharge or skin changes. She has not had any recent trauma or infection in the breast. She is not complaining of any pain in the breast. The patient's mother of breast cancer at the age of 48. She was diagnosed at the age of 46. She did not have genetic testing done. She was seen and had a normal mammogram and a month later was diagnosed with breast cancer positive in her lymph nodes. Patient's boyfriend was just diagnosed with esophageal cancer stage IV within the past several weeks. She is under increased stress related to this. Pilar risk evaluation: 5 year risk 1.6%; average 1% life time risk: 18% average 11.9% Caffeine: rare nicotine: none chocolate: occasional hormones: BCP for endometriosis 4 years consistent now, used them intermittently for many years Family history: Mother: breast cancer at 46 of this at 48 maternal grandmother: ? ovarian cancer maternal great aunt: cancer? type Patient with a history of premalignant colon polyps Hormonal History: menarche: 13 , premature and , age at : 25 periods irregular polycystic ovarian disease patient is intermittently on control pills BCP many years intermittently Surgical history: 1. gallbladder 2. 3. left foot 4. laser surgery bilateral eyes for glaucoma 5. 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 hypothyroid suboccipital neuritis left ovary removed Social history: Nicotine: Negative Alcohol:rare drugs: none - Constitutional Constitutional: Denies chills, Denies fever - EENT Comment: glaucoma Eyes: denies blurred vision, denies pain Ears: deny: decreased hearing, tinnitus Ears, nose, mouth and throat: Reports headache, Denies sore throat - Breasts Breasts: bilateral: as per HPI - Cardiovascular Cardiovascular: Denies chest pain, Denies shortness of breath - Respiratory Respiratory: Denies cough, Denies 7 - Gastrointestinal Gastrointestinal: Denies abdominal pain, Denies diarrhea, Denies nausea, Denies vomiting - Genitourinary (Female) Genitourinary: Denies dysuria, Denies hematuria - Menstruation Menstruation: Reports as per HPI - Musculoskeletal Musculoskeletal: Reports myalgias - Integumentary Integumentary: Denies pruritus, Denies rash - Neurological Comment: intermittent numbness in toes and hands Neurological: Denies numbness, Denies weakness - Psychiatric Psychiatric: Reports anxiety, Reports depression - Endocrine Comment: diabetes - Hematologic/Lymphatic Comment: ITP - Allergic/Immunologic Allergic/Immunologic: Reports as per HPI Past Medical History Past Medical History: Diabetes Mellitus, Thyroid Disorder Additional Past Medical History / Comment(s): hiatal hernia, PCOS, diverticulitis, 3 small kidney stones, headaches History of Any Multi-Drug Resistant Organisms: None Reported Past Surgical History: Section, Cholecystectomy, Orthopedic Surgery Additional Past Surgical History / Comment(s): 1 ovary removed, pinky toe lt foot screws and plate in place Past Anesthesia/Blood Transfusion Reactions: Previous Problems w/ Anesthesia Additional Past Anesthesia/Blood Transfusion Reaction / Comment(s): "took a little longer to come out of anesthesia when ovary was removed". "had small little purple dots on my face after my upper scope and took 1 week to resolve" Past Psychological History: Anxiety, Depression Smoking Status: Never smoker Past Alcohol Use History: None Reported Past Drug Use History: None Reported - Past Family History Mother Family Medical History: Cancer Additional Family Medical History / Comment(s): breast cancer Medications and Allergies Home Medications Medication Instructions Recorded Confirmed Type Cinnamon Bark [Cinnamon] 1,000 mg PO BID 05/29/19 06/15/20 History Levothyroxine Sodium [Synthroid] 100 mcg PO DAILY 05/29/19 06/15/20 History Melatonin 5 mg PO HS 05/29/19 06/15/20 History Multivitamins, Thera [Multivitamin 1 tab PO DAILY 05/29/19 06/15/20 History (formulary)] Passion Flower 500 mg PO HS 05/29/19 06/15/20 History Simethicone [Gas-X] 2 tab PO DAILY 05/29/19 06/15/20 History lisinopriL [Zestril] 2.5 mg PO DAILY 05/29/19 06/15/20 History metFORMIN HCL [Glucophage] 1,000 mg PO DAILY 05/29/19 06/15/20 History Calcium Carbonate [Tums] 500 mg PO TID PRN 01/29/20 06/15/20 History Famotidine [Pepcid] 10 mg PO DAILY 01/29/20 06/15/20 History Latanoprost [Xalatan 0.005%] 1 drop BOTH EYES HS 01/29/20 06/15/20 History Pioglitazone [Actos] 15 mg PO PC-BRKFST 01/29/20 06/15/20 History Cypro Heptad 4 mg PO HS 03/16/20 06/15/20 History Omeprazole [PriLOSEC] 20 mg PO AC-BRKFST 03/16/20 06/15/20 History Blisovi Fe - Control 1 tab PO DAILY 03/30/20 06/15/20 History Butalb/APAP/Caff 50-325-40Mg 1 tab PO DIRECTED PRN 03/30/20 06/15/20 History [Fioricet 50-325-40] L.acidoph,Paracasei, B.lactis 1 each PO DAILY 03/30/20 06/15/20 History [Probiotic] Allergies Allergy/AdvReac Type Severity Reaction Status Date / Time erythromycin base Allergy Unknown STOMACH Verified 01/13/21 10:23 PAIN Penicillins Allergy Rash/Hives Verified 01/13/21 10:23 Surgical - Exam BMI 33.5 - General moderate distress - Eyes normal ocular movement - ENT normal nares - Neck no masses, trachea midline - Respiratory normal respiratory effort, clear to auscultation - Cardiovascular Rhythm: regular Heart Sounds: normal: S1, S2 - Abdomen Abdomen: soft - Integumentary normal turgor - Musculoskeletal normal gait - Psychiatric oriented to time, oriented to person, oriented to place, speech is normal, memory intact breast exam: BRA: 44C inspection: 33 ptosis bilateral Palpation: Right breast: Multiple positional exam fibrocystic changes no dominant masses or nodules of concern Right axilla: No adenopathy of concern Left breast: Multiple positional exam fibrocystic changes, no dominant masses or nodules of concern Left axilla: No adenopathy of concern Results Patient's mammogram results reviewed Assessment and Plan Assessment: Impression: Polycystic ovarian disease Endometriosis Diverticulitis Fatty liver Depression Diabetes patient is on metformin 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 Patient is going to see a genetic counselor regarding possible genetic gregor ting 2. Repeat right breast mammogram in 6 months after last mammogram with physician exam at that time; March 2021 with an appointment to follow 3. Patient counseled regarding control pills and fibrocystic breast changes at this time she takes the control pills secondary to endometriosis and polycystic ovarian disease most likely we will just continue close surveillance CC: DR. Mary Heath
== END ==
LOC: WWCWWP 10:07
PROVIDERS: ATTEND Surgery
DX: R92.8 Other abnormal and inconclusive findings on diagnostic imaging of breast (principal); E28.2 Polycystic ovarian syndrome; N80.9 Endometriosis, unspecified; K57.92 Diverticulitis of intestine, part unspecified, without perforation or abscess without bleeding; K76.0 Fatty (change of) liver, not elsewhere classified; E11.9 Type 2 diabetes mellitus without complications; E03.9 Hypothyroidism, unspecified; F32.9 Major depressive disorder, single episode, unspecified; M54.81 Occipital neuralgia; Z86.2 Personal history of diseases of the blood and blood-forming organs and certain disorders involving the immune mechanism; Z90.721 Acquired absence of ovaries, unilateral; N60.19 Diffuse cystic mastopathy of unspecified breast; Z80.3 Family history of malignant neoplasm of breast; Z79.84 Long term (current) use of oral hypoglycemic drugs; Z88.0 Allergy status to penicillin; Z88.1 Allergy status to other antibiotic agents

== ENCOUNTER → 2021-03-16 | Outpatient (CLI) | payer OTHER ==
--- NOTE | 2021-03-21 13:08 | MM ---
Reason for exam: follow-up at short interval from prior study. Last mammogram was performed 6 months ago. History: Family history of breast cancer in mother at age 48. Taking hormonal contraceptives for 3 years beginning at age 41. Physical Findings: Nurse did not find any significant physical abnormalities on exam. MG 3D Diag Mammo W/Cad RT CC and MLO view(s) were taken of the right breast. Prior study comparison: September 16, 2020, bilateral MG 3d screening mammo w/cad. March 21, 2020, left breast MG 3d diag mammo w/cad LT. The breast tissue is heterogeneously dense. This may lower the sensitivity of mammography. No distinct lesion persists. These results were verbally communicated with the patient and result sheet given to the patient on 03/16/21. ASSESSMENT: Benign, BI-RAD 2 RECOMMENDATION: Return to routine screening mammogram schedule for both breasts. Back on schedule for September 2021.
== END | disposition home or self-care (01) ==
LOC: RADMAMWWP 10:14
PROVIDERS: ATTEND Surgery
DX: R92.2 Inconclusive mammogram (principal); Z79.3 Long term (current) use of hormonal contraceptives; Z80.3 Family history of malignant neoplasm of breast
CPT/HCPCS: 77065; G0279; 77061

== ENCOUNTER → 2021-03-23 | Outpatient (CLI) | payer OTHER ==
[2021-03-23 08:55] VITALS: BP 107/72; PULSE 81; RESP 18; TEMP 98.7
--- NOTE | 2021-03-23 09:20 | P.PN ---
Subjective Progress Note Date: 03/23/21 Principal diagnosis: fibrocystic breast disease Catherine is a 45 year old white female seen in consultation for Dr. Heath regarding an abnormal right breast mammogram. Her last bilateral mammogram was on 09-16-20. The patient does not feel any lumps masses or nodules of concern in either breast. She's not complaining of any nipple discharge or skin changes. She has not had any recent trauma or infection in the breast. She is not complaining of any pain in the breast. The patient's mother of breast cancer at the age of 48. She was diagnosed at the age of 46. She did not have genetic testing done. She was seen and had a normal mammogram and a month later was diagnosed with breast cancer positive in her lymph nodes. Patient's boyfriend was just diagnosed with esophageal cancer stage IV within the past several weeks. She is under increased stress related to this. Catherine had genetic testing performed which revealed no genetic variance and 83 genes tested. Additionally a Tyrer-Karenzick model risk analysis was performed showing a 22.6% lifetime risk of developing breast cancer. We have discussed breast MRI secondary to her high lifetime risk of developing breast cancer. We have talked about the possibility of an anti-hormone therapy, the patient at this time however would like to wait on this. I gave her the option of seeing a medical oncologist to discuss this at this time she is going to wait. Repeat right breast mammogram was performed and a521 which is benign BIRADS 2. Her last left breast mammogram was sent to521 and nothing of concern was noted on that film. Pilar risk evaluation: 5 year risk 1.6%; average 1% life time risk: 18% average 11.9% Katiaer-Shadyk: lifetime risk 22.6% Caffeine: rare nicotine: none chocolate: occasional hormones: BCP for endometriosis 4 years consistent now, used them intermittently for many years Family history: Mother: breast cancer at 46 of this at 48 maternal grandmother: ? ovarian cancer maternal great aunt: cancer? type Patient with a history of premalignant colon polyps Hormonal History: menarche: 13 , premature and , age at : 25 periods irregular polycystic ovarian disease patient is intermittently on control pills BCP many years intermittently Surgical history: 1. gallbladder 2. 3. left foot 4. laser surgery bilateral eyes for glaucoma 5. 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 hypothyroid suboccipital neuritis left ovary removed Social history: Nicotine: Negative Alcohol:rare drugs: none - Constitutional Constitutional: Denies chills, Denies fever - EENT Comment: glaucoma Eyes: denies blurred vision, denies pain Ears: deny: decreased hearing, tinnitus Ears, nose, mouth and throat: Reports headache, Denies sore throat - Breasts Breasts: bilateral: as per HPI - Cardiovascular Cardiovascular: Denies chest pain, Denies shortness of breath - Respiratory Respiratory: Denies cough - Gastrointestinal Gastrointestinal: Denies abdominal pain, Denies diarrhea, Denies nausea, Denies vomiting - Genitourinary (Female) Genitourinary: Denies dysuria, Denies hematuria - Menstruation Menstruation: Reports as per HPI - Musculoskeletal Musculoskeletal: Reports myalgias - Integumentary Integumentary: Denies pruritus, Denies rash - Neurological Comment: intermittent numbness in toes and hands Neurological: Denies numbness, Denies weakness - Psychiatric Psychiatric: Reports anxiety, Reports depression - Endocrine Comment: diabetes - Hematologic/Lymphatic Comment: ITP - Allergic/Immunologic Allergic/Immunologic: Reports as per HPI Objective - Vital Signs Vital signs: Vital Signs Temp 98.7 F 03/23/21 08:53 Pulse 81 03/23/21 08:53 Resp 18 03/23/21 08:53 BP 107/72 03/23/21 08:53 Pulse Ox 98 03/23/21 08:53 Intake & Output 03/22/21 03/23/21 03/23/21 18:59 06:59 18:59 Weight 89.811 kg Assessment and Plan Assessment: Impression: Polycystic ovarian disease Endometriosis Diverticulitis Fatty liver Depression Diabetes patient is on metformin 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 Bilateral MRI at this time than follow up 2. In 6 months bilateral mammogram 2. Patient is anything of concern we'll see her sooner 4. Options see medical oncology for any hormonal therapy discussed but patient has declined at this time CC: Dr. Heath
== END ==
LOC: WWCWWP 08:28
PROVIDERS: ATTEND Surgery
DX: E28.2 Polycystic ovarian syndrome (principal); N80.9 Endometriosis, unspecified; K57.92 Diverticulitis of intestine, part unspecified, without perforation or abscess without bleeding; K76.0 Fatty (change of) liver, not elsewhere classified; F32.9 Major depressive disorder, single episode, unspecified; E11.9 Type 2 diabetes mellitus without complications; E03.9 Hypothyroidism, unspecified; D69.3 Immune thrombocytopenic purpura; M54.81 Occipital neuralgia; Z90.721 Acquired absence of ovaries, unilateral; Z88.0 Allergy status to penicillin; Z88.1 Allergy status to other antibiotic agents

== ENCOUNTER → 2021-07-10 | Outpatient (CLI) | payer OTHER ==
--- NOTE | 2021-07-10 08:34 | US ---
EXAMINATION TYPE: US abdomen complete DATE OF EXAM: 07/10/2021 COMPARISON: NONE CLINICAL HISTORY: R14.10 Abdominal distention. bloating, abdominal discomfort, cholecystectomy EXAM MEASUREMENTS: Liver Length: 18.5 cm Gallbladder Wall: Surgically absent CBD: 0.5 cm Spleen: 11.2 cm Right Kidney: 9.7 x 3.9 x 4.1 cm Left Kidney: 11.0 x 5.3 x 4.6 cm *technical limitations due to overlying bowel content Pancreas: Obscured by bowel gas Liver: attenuating, enlarged Gallbladder: Surgically absent Evidence for sonographic Baum's sign: no CBD: limited evaluation Spleen: multiple hyperechoic areas noted, largest = 1.8 x 2.0 x 1.8cm Right Kidney: lobulated, no evidence of hydronephrosis Left Kidney: no evidence of hydronephrosis Upper IVC: wnl Abd Aorta: wnl The intrahepatic portion of the IVC and proximal abdominal aorta are within normal limits. Common bi le duct is unremarkable. The visualized portions of the pancreas are homogenous. The spleen is unre markable. Kidneys are symmetric and free of hydronephrosis. No renal lesions are seen. IMPRESSION: 1. Hepatomegaly with underlying hepatic fatty infiltration.
== END | disposition home or self-care (01) ==
LOC: RADUSWWP 07:04
PROVIDERS: ATTEND Internal Medicine Gastroenterology
DX: R16.0 Hepatomegaly, not elsewhere classified (principal)
CPT/HCPCS: 76700

== ENCOUNTER → 2021-09-18 | Outpatient (CLI) | payer OTHER ==
[2021-09-18 14:48] LABS: African American GFR (CKD) 102.5 (60.0-200.0); Albumin 4.1 g/dL (3.8-4.9); Albumin/Globulin Ratio 1.58 (1.60-3.17); Anion Gap 13.5 mmol/L (10.00-18.00); BUN/Creat Ratio 14.5 Ratio (12.00-20.00); Blood Urea Nitrogen 11.6 mg/dL (9.0-27.0); Calcium 9.4 mg/dL (8.7-10.3); Carbon Dioxide 23.5 mmol/L (20.0-27.5); Globulin 2.6 g/dL (1.6-3.3); Non-African American GFR(CKD) 88.4 (60.0-200.0); Potassium 4.6 mmol/L (3.5-5.5); Total Bilirubin 0.2 mg/dL (0.30-1.20); Total Protein 6.7 g/dL (6.2-8.2)
== END | disposition home or self-care (01) ==
LOC: LABWHC1 08:34
PROVIDERS: ATTEND Internal Medicine Gastroenterology
DX: R16.0 Hepatomegaly, not elsewhere classified (principal)
CPT/HCPCS: 36415; 80053

== ENCOUNTER → 2021-09-18 | Outpatient (CLI) | payer OTHER ==
--- NOTE | 2021-09-19 10:20 | MM ---
Reason for exam: screening (asymptomatic). Last mammogram was performed 6 months ago. History: Patient has breast cancer gene. Family history of breast cancer in mother at age 46. Taking hormonal contraceptives for 5 years beginning at age 41. Physical Findings: A clinical breast exam by your physician is recommended on an annual basis and results should be correlated with mammographic findings. MG 3D Screening Mammo W/Cad Bilateral CC and MLO view(s) were taken. Prior study comparison: March 16, 2021, right breast MG 3d diag mammo w/cad RT. September 16, 2020, bilateral MG 3d screening mammo w/cad. The breast tissue is heterogeneously dense. This may lower the sensitivity of mammography. There are benign appearing round calcifications bilaterally. There is no discrete abnormality. ASSESSMENT: Benign, BI-RAD 2 RECOMMENDATION: Routine screening mammogram of both breasts in 1 year.
== END | disposition home or self-care (01) ==
LOC: RADMAMWWP 08:00
PROVIDERS: ATTEND Surgery
DX: Z12.31 Encounter for screening mammogram for malignant neoplasm of breast (principal); Z80.3 Family history of malignant neoplasm of breast
CPT/HCPCS: 77063; 77067

== ENCOUNTER → 2021-09-22 | Outpatient (CLI) | payer OTHER ==
[2021-09-22 10:04] VITALS: BP 123/77; PULSE 89; RESP 16; TEMP 97.9
--- NOTE | 2021-09-22 10:24 | P.PN ---
Subjective Progress Note Date: 09/22/21 fibrocystic breast disease 03-23-21 Catherine is a 45 year old white female seen in consultation for Dr. Heath regarding an abnormal right breast mammogram. Her last bilateral mammogram was on 09-16-20. The patient does not feel any lumps masses or nodules of concern in either breast. She's not complaining of any nipple discharge or skin changes. She has not had any recent trauma or infection in the breast. She is not complaining of any pain in the breast. The patient's mother of breast cancer at the age of 48. She was diagnosed at the age of 46. She did not have genetic testing done. She was seen and had a normal mammogram and a month later was diagnosed with breast cancer positive in her lymph nodes. Patient's boyfriend was just diagnosed with esophageal cancer stage IV within the past several weeks. She is under increased stress related to this. Catherine had genetic testing performed which revealed no genetic variance on 83 genes tested. Additionally a Tyrer-Karenzick model risk analysis was performed showing a 22.6% lifetime risk of developing breast cancer. We have discussed breast MRI secondary to her high lifetime risk of developing breast cancer. We have talked about the possibility of an anti-hormone therapy, the patient at this time however would like to wait on this. I gave her the option of seeing a medical oncologist to discuss this at this time she is going to wait. Repeat right breast mammogram was performed on 8520 which is benign BIRADS 2. Her last left breast mammogram was sent to521 and nothing of concern was noted on that film. 09-22-21 The patient is not complaining of any lumps masses or nodules of concern in her breast. She had a bilateral mammogram and 2721 which was benign BIRADS 2. Pilar risk evaluation: 5 year risk 1.6%; average 1% life time risk: 18% average 11.9% Katiaer-Shadyk: lifetime risk 22.6% Caffeine: rare nicotine: none chocolate: occasional hormones: BCP for endometriosis 4 years consistent now, used them intermittently for many years Family history: Mother: breast cancer at 46 of this at 48 maternal grandmother: ? ovarian cancer maternal great aunt: cancer? type Patient with a history of premalignant colon polyps Hormonal History: menarche: 13 , premature and , age at : 25 periods irregular polycystic ovarian disease patient is intermittently on control pills BCP many years intermittently Surgical history: 1. gallbladder 2. 3. left foot 4. laser surgery bilateral eyes for glaucoma 5. 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 hypothyroid suboccipital neuritis left ovary removed Social history: Nicotine: Negative Alcohol:rare drugs: none - Constitutional Constitutional: Denies chills, Denies fever - EENT Comment: glaucoma Eyes: denies blurred vision, denies pain Ears: deny: decreased hearing, tinnitus Ears, nose, mouth and throat: Reports headache, Denies sore throat - Breasts Breasts: bilateral: as per HPI - Cardiovascular Cardiovascular: Denies chest pain, Denies shortness of breath - Respiratory Respiratory: Denies cough - Gastrointestinal Gastrointestinal: Denies abdominal pain, Denies diarrhea, Denies nausea, Denies vomiting - Genitourinary (Female) Genitourinary: Denies dysuria, Denies hematuria - Menstruation Menstruation: Reports as per HPI - Musculoskeletal Musculoskeletal: Reports myalgias - Integumentary Integumentary: Denies pruritus, Denies rash - Neurological Comment: intermittent numbness in toes and hands Neurological: Denies numbness, Denies weakness - Psychiatric Psychiatric: Reports anxiety, Reports depression - Endocrine Comment: diabetes - Hematologic/Lymphatic Comment: ITP - Allergic/Immunologic Allergic/Immunologic: Reports as per HPI Objective - Vital Signs Vital signs: Vital Signs Temp 97.9 F 09/22/21 09:59 Pulse 89 09/22/21 09:59 Resp 16 09/22/21 09:59 BP 123/77 09/22/21 09:59 Pulse Ox Intake & Output 09/21/21 09/22/21 09/22/21 18:59 06:59 18:59 Weight 86.183 kg - Constitutional General appearance: Present: cooperative - EENT Eyes: Present: EOMI ENT: Present: hearing grossly normal - Neck Neck: Present: normal ROM - Respiratory Respiratory: bilateral: CTA - Cardiovascular Rhythm: regular Heart sounds: normal: S1, S2 - Gastrointestinal General gastrointestinal: Present: soft - Integumentary Integumentary: Present: normal turgor - Musculoskeletal Musculoskeletal: Present: gait normal - Psychiatric Psychiatric: Present: A&O x's 3, appropriate affect, intact judgment & insight - Additional findings Additional findings: Breast Exam: BRA: 42C inspection: bilateral grade 3 ptosis palpation: right breast: multipositional exam no dominant masses or nodules of concern Right axilla: No adenopathy of concern Left breast: Multiple positional exam no dominant masses or nodules of concern Left axilla: No adenopathy of concern Assessment and Plan Assessment: Impression: Fibrocystic breast changes Positive family history of breast cancer Bilateral mammogram benign BIRADS 2 from 09-18-21 Patient has had genetic counseling and risk model results reveal a 22.6% lifetime risk to develop breast cancer according to the Tyrer-Cruzik model Plan: Breast MRI to alternate every 6 months with a mammogram secondary to the increased risk of breast cancer as per the Tyrer-Shlomo ache model Follow up after breast MRI CC: Dr. Guanakito Heath
== END ==
LOC: WWCWWP 09:51
PROVIDERS: ATTEND Surgery
DX: Z12.31 Encounter for screening mammogram for malignant neoplasm of breast (principal); N60.19 Diffuse cystic mastopathy of unspecified breast; F32.A Depression, unspecified; E11.9 Type 2 diabetes mellitus without complications; Z79.84 Long term (current) use of oral hypoglycemic drugs; E03.9 Hypothyroidism, unspecified; Z80.3 Family history of malignant neoplasm of breast; Z88.0 Allergy status to penicillin; Z88.1 Allergy status to other antibiotic agents

== ENCOUNTER → 2022-03-20 | Outpatient (CLI) | payer OTHER ==
--- NOTE | 2022-03-27 06:51 | BMR ---
EXAMINATION TYPE: MR breast BILAT wo/w con DATE OF EXAM: 03/20/2022 COMPARISON: Bilateral breast mammogram September 18, 2021 BI-RADS 2 and older mammograms through 2017. HISTORY: ABNORMAL MAMMOGRAM, right breast and armpit pain. Family history of breast cancer at age 46. TECHNIQUE: A series of fat and water weighted images in the long and short axis views of both breasts are obtained in conjunction with dynamic contrast MRI with subtraction technique. The patient was i njected with 9 mL intravenous Gadavist gadolinium contrast. Three-dimensional and additional postpr ocessing imaging is created on independent workstation and reviewed during official interpretation of this study. FINDINGS: Scattered fibroglandular tissue is present bilaterally. Asymmetrically prominent tissue in the outer aspect middle depth left breast correlates with prior mammograms. T2 and STIR weighted imag es show no concerning cystic lesions or focal fluid collections. There are symmetric benign appearing axillary lymph nodes bilaterally. Postcontrast imaging shows mild background enhancement. Delayed po stcontrast imaging shows no suspicious internal mammary adenopathy. There is no suspicious enhancing mass with regards to either breast. No abnormal skin thickening is s een. Chest wall is intact bilaterally. IMPRESSION: No suspicious mass identified bilaterally. BI-RADS 1 negative study Recommendation: Patient will be due for her routine mammogram September 2022. Manage patient's symptom s of right breast and axillary pain on clinical basis. I will review the case on independent workstation and issue addendum 03/30/2022. Current report zi hankins as preliminary report.
== END | disposition home or self-care (01) ==
LOC: RADMRIMAIN 07:23
PROVIDERS: ATTEND Surgery
DX: R92.8 Other abnormal and inconclusive findings on diagnostic imaging of breast (principal); Z80.3 Family history of malignant neoplasm of breast
CPT/HCPCS: C8908; A9585; 77049

== ENCOUNTER → 2022-04-12 | Outpatient (CLI) | payer OTHER ==
--- NOTE | 2022-04-12 15:03 | US ---
EXAMINATION TYPE: US transvaginal DATE OF EXAM: 04/12/2022 COMPARISON: No direct comparisons. CLINICAL HISTORY: N92.1 N92.6 Irregular menstruation, unspecified. Known PCOS, endometriosis, on janae h control, no cycles for 6 months and then spotting, no pain, h/o left oophorectomy, labs say she is in menopause TECHNIQUE: TVTransvaginal sonographic images - bladder not full for TA Date of LMP: unknown EXAM MEASUREMENTS: Uterus: 7.5 x 4.2 x 3.5 cm Endometrial Stripe: 0.7 cm Right Ovary: 2.7 x 1.3 x 1.9 cm Left Ovary: Surgically absent 1. Uterus: Anteverted wnl 2. Endometrium: wnl 3. Right Ovary: wnl 4. Left Ovary: Surgically absent 5. Bilateral Adnexa: wnl 6. Posterior cul-de-sac: wnl IMPRESSION: 1. No acute pelvic process. 2. Postsurgical changes from left oophorectomy.
== END | disposition home or self-care (01) ==
LOC: RADUSWWP 13:37
PROVIDERS: ATTEND Family Medicine
DX: N92.1 Excessive and frequent menstruation with irregular cycle (principal); Z98.890 Other specified postprocedural states
CPT/HCPCS: 76830

== ENCOUNTER → 2022-04-27 | Outpatient (CLI) | payer OTHER ==
[2022-04-27 10:18] VITALS: BP 112/76; PULSE 67; RESP 17; TEMP 98
--- NOTE | 2022-04-27 10:36 | P.PN ---
Subjective Progress Note Date: 04/27/22 fibrocystic breast disease 03-23-21 Catherine is a 45 year old white female seen in consultation for Dr. Heath regarding an abnormal right breast mammogram. Her last bilateral mammogram was on 09-16-20. The patient does not feel any lumps masses or nodules of concern in either breast. She's not complaining of any nipple discharge or skin changes. She has not had any recent trauma or infection in the breast. She is not complaining of any pain in the breast. The patient's mother of breast cancer at the age of 48. She was diagnosed at the age of 46. She did not have genetic testing done. She was seen and had a normal mammogram and a month later was diagnosed with breast cancer positive in her lymph nodes. Patient's boyfriend was just diagnosed with esophageal cancer stage IV within the past several weeks. She is under increased stress related to this. Catherine had genetic testing performed which revealed no genetic variance on 83 genes tested. Additionally a Tyrer-Cuzick model risk analysis was performed showing a 22.6% lifetime risk of developing breast cancer. We have discussed breast MRI secondary to her high lifetime risk of developing breast cancer. We have talked about the possibility of an anti-hormone therapy, the patient at this time however would like to wait on this. I gave her the option of seeing a medical oncologist to discuss this at this time she is going to wait. Repeat right breast mammogram was performed on 8520 which is benign BIRADS 2. Her last left breast mammogram was sent to521 and nothing of concern was noted on that film. 09-22-21 The patient is not complaining of any lumps masses or nodules of concern in her breast. She had a bilateral mammogram and 2721 which was benign BIRADS 2. 04-27-22 The patient had a bilateral MRI on 03-20-22 which did not show any lesions of concern. The patient is not complaining of any lumps masses or nodules of concern. She tells me today her boyfriend has progressive esophageal cancer. She is helping him out as much as she can. Pilar risk evaluation: 5 year risk 1.6%; average 1% life time risk: 18% average 11.9% Tyrer-Cusizk: lifetime risk 22.6% Caffeine: rare nicotine: none chocolate: occasional hormones: BCP for endometriosis 4 years consistent now, used them intermittently for many years Family history: Mother: breast cancer at 46 of this at 48 maternal grandmother: ? ovarian cancer maternal great aunt: cancer? type Patient with a history of premalignant colon polyps Hormonal History: menarche: 13 , premature and , age at : 25 periods irregular polycystic ovarian disease patient is intermittently on control pills BCP many years intermittently Surgical history: 1. gallbladder 2. 3. left foot 4. laser surgery bilateral eyes for glaucoma 5. 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 hypothyroid suboccipital neuritis left ovary removed Social history: Nicotine: Negative Alcohol:rare drugs: none - Constitutional Constitutional: Denies chills, Denies fever - EENT Comment: glaucoma Eyes: denies blurred vision, denies pain Ears: deny: decreased hearing, tinnitus Ears, nose, mouth and throat: Reports headache, Denies sore throat - Breasts Breasts: bilateral: as per HPI - Cardiovascular Cardiovascular: Denies chest pain, Denies shortness of breath - Respiratory Respiratory: Denies cough - Gastrointestinal Gastrointestinal: Denies abdominal pain, Denies diarrhea, Denies nausea, Denies vomiting - Genitourinary (Female) Genitourinary: Denies dysuria, Denies hematuria - Menstruation Menstruation: Reports as per HPI - Musculoskeletal Musculoskeletal: Reports myalgias - Integumentary Integumentary: Denies pruritus, Denies rash - Neurological Comment: intermittent numbness in toes and hands Neurological: Denies numbness, Denies weakness - Psychiatric Psychiatric: Reports anxiety, Reports depression - Endocrine Comment: diabetes - Hematologic/Lymphatic Comment: ITP - Allergic/Immunologic Allergic/Immunologic: Reports as per HPI At this time the patient has declined an examination. She had a breast exam here in 2021 which did not show any lesions of concern. Plan: Bilateral mammogram September 2022 with physician exam at that time Patient to follow up sooner any questions or concerns CC: DR. Heath Objective - Vital Signs Vital signs: Vital Signs Temp 98 F 04/27/22 10:16 Pulse 67 04/27/22 10:16 Resp 17 04/27/22 10:16 BP 112/76 04/27/22 10:16 Pulse Ox 100 04/27/22 10:16 FiO2 Intake & Output 04/26/22 04/27/22 04/27/22 18:59 06:59 18:59 Weight 82.554 kg
== END ==
LOC: WWCWWP 10:09
PROVIDERS: ATTEND Surgery
DX: Z53.9 Procedure and treatment not carried out, unspecified reason (principal)

== ENCOUNTER 2023-06-05 08:49 | Day surgery (SDC) | payer OTHER ==
[~2023-06-05 08:49] MED LIST changes: -IV FLUID CONTINUATION 300 ML IV ONE; -MIDAZOLAM 2 MG/2 ML VIAL ONE; -ROPIVACAINE 5MG/ML 20ML VIAL ONE; -fentaNYL (PF) 50 MCG/ML 2 ML AMP ONE
[2023-06-05 09:22] VITALS: RESP 18; TEMP 98.5
[2023-06-05 09:33] LABS: Glucose,Whole Blood 143 mg/dL (70-110)
[2023-06-05] MEDS ORDERED: PROPOFOL 10 MG/ML 20 ML VIAL IV ONE (09:49)
--- NOTE | 2023-06-05 10:09 | P.PCN ---
Date of Procedure: 06/05/23 Procedure(s) Performed: BRIEF HISTORY: Patient is a 46-year-old pleasant white female scheduled for an elective colonoscopy as a part of evaluation of prior history of colon polyps. Her last colonoscopy was 3 years ago. PROCEDURE PERFORMED: Colonoscopy with biopsy. PREOPERATIVE DIAGNOSIS: History of colon polyps. IV sedation per Anesthesia. PROCEDURE: After informed consent was obtained, the patient, was brought into the endoscopy unit. IV sedation was administered by Anesthesia under continuous monitoring. Digital rectal examination was normal. Initially the Olympus CF-160 flexible video colonoscope was then inserted in the rectum, gradually advanced into the cecum without any difficulty. Careful examination was performed as the scope was gradually being withdrawn. Ileocecal valve and the appendiceal orifice were visualized and appeared normal. Prep was excellent. Mucosa of the cecum, ascending colon, transverse colon, descending colon, sigmoid colon, and rectum appeared normal. The sigmoid: There was a 3 mm polyp that was removed by cold biopsy. Retroflexion was performed in the rectum and no lesions were seen. The patient tolerated the procedure well. IMPRESSION: 3 mm; sigmoid polyp status post cold biopsy Rest of the colon appeared normal RECOMMENDATIONS: Findings of this examination were discussed with the patient as well as a family. She was advised to follow with the biopsy results. If the biopsies adenoma she can have a repeat colonoscopy in 5 years..
[2023-06-05 10:43] VITALS: BP 128/67; PULSE 78
== END 2023-06-05 10:44 | disposition home or self-care (01) ==
LOC: ORWHC2ENDO 08:49
PROVIDERS: ATTEND Internal Medicine Gastroenterology
DX: Z12.11 Encounter for screening for malignant neoplasm of colon (principal); D12.5 Benign neoplasm of sigmoid colon; Z86.010 Personal history of colon polyps; E11.9 Type 2 diabetes mellitus without complications; E07.9 Disorder of thyroid, unspecified; Z88.1 Allergy status to other antibiotic agents; Z79.84 Long term (current) use of oral hypoglycemic drugs; Z79.890 Hormone replacement therapy; Z79.899 Other long term (current) drug therapy
CPT/HCPCS: 81025; 88305; 45380; J2704

== ENCOUNTER → 2023-09-25 | Outpatient (CLI) | payer OTHER ==
--- NOTE | 2023-09-26 15:19 | MM ---
Reason for Exam: Screening (asymptomatic). Last screening mammogram was performed 12 month(s) ago. Patient History: Menarche at age 13. First Full-Term at age 25. Left ovary removed at age 41. Patient tested for BRCA1 outcome was negative. Patient tested for BRCA2 outcome was negative. Currently using Hormonal Contraceptives, beginning at age 41 for 5 years. Mother had breast cancer, age 46. Risk Values: Pilar 5 year model risk: 1.8%. NCI Lifetime model risk: 17.3%. Prior Study Comparison: 03/16/2021 Right Diagnostic Mammogram, [facility]. 09/18/2021 Bilateral Screening Mammogram, [facility]. 09/21/2022 Bilateral MG 3D diag mammo w/cad MIRELLA, [facility]. Tissue Density: There are scattered fibroglandular densities. Findings: Analyzed By CAD. There is no suspicious group of microcalcifications or new suspicious mass. Benign-appearing calcifications bilaterally. Overall Assessment: Benign, BI-RAD 2 Management: Screening Mammogram of both breasts in [address] [facility] will attempt to contact patient to return for supplemental views and ultrasound if indicated. Patient should continue monthly self-breast exams. A clinical breast exam by your physician is recommended on an annual basis. This exam should not preclude additional follow-up of suspicious palpable abnormalities. Note on Pilar scores and lifetime risk: 1. A Pilar score greater than 3% is considered moderate risk. If this is the case, consider specialist referral to assess eligibility for a risk reducing agent. 2. If overall lifetime risk for the development of breast cancer is 20% or higher, the patient may qualify for future screening with alternating mammogram and breast MRI. Electronically signed and approved by: Roger Corral DO
== END | disposition home or self-care (01) ==
LOC: RADMAMWWP 13:57
PROVIDERS: ATTEND Family Medicine
DX: Z12.31 Encounter for screening mammogram for malignant neoplasm of breast (principal); Z80.3 Family history of malignant neoplasm of breast
CPT/HCPCS: 77063; 77067

== ENCOUNTER → 2023-10-10 | Outpatient (CLI) | payer OTHER ==
--- NOTE | 2023-10-10 13:33 | P.PN ---
Subjective Progress Note Date: 10/10/23 Principal diagnosis: fibrocystic breast disease Progress Note Date: 09/21/22 Progress Note Date: 04/27/22 fibrocystic breast disease 03-23-21 Catherine is a 45 year old white female seen in consultation for Dr. Heath regarding an abnormal right breast mammogram. Her last bilateral mammogram was on 09-16-20. The patient does not feel any lumps masses or nodules of concern in either breast. She's not complaining of any nipple discharge or skin changes. She has not had any recent trauma or infection in the breast. She is not complaining of any pain in the breast. The patient's mother of breast cancer at the age of 48. She was diagnosed at the age of 46. She did not have genetic testing done. She was seen and had a normal mammogram and a month later was diagnosed with breast cancer positive in her lymph nodes. Patient's boyfriend was just diagnosed with esophageal cancer stage IV within the past several weeks. She is under increased stress related to this. Catherine had genetic testing performed which revealed no genetic variance on 83 genes tested. Additionally a Tyrer-Cuzick model risk analysis was performed showing a 22.6% lifetime risk of developing breast cancer. We have discussed breast MRI secondary to her high lifetime risk of developing breast cancer. We have talked about the possibility of an anti-hormone therapy, the patient at this time however would like to wait on this. I gave her the option of seeing a medical oncologist to discuss this at this time she is going to wait. Repeat right breast mammogram was performed on 8520 which is benign BIRADS 2. Her last left breast mammogram was sent to521 and nothing of concern was noted on that film. 09-22-21 The patient is not complaining of any lumps masses or nodules of concern in her breast. She had a bilateral mammogram and 2721 which was benign BIRADS 2. 04-27-22 The patient had a bilateral MRI on 03-20-22 which did not show any lesions of concern. The patient is not complaining of any lumps masses or nodules of concern. She tells me today her boyfriend has progressive esophageal cancer. She is helping him out as much as she can. 09-21-22 The patient had a bilateral mammogram performed which was benign BIRADS 2. Catherine's boyfriend July 29, 2022. She is not complaining of any new lumps masses or nodules of concern in either breast. Her Pilar risk evaluation at 5 years is 1.7%. 10-10-23 The patient had a bilateral mammogram on 09-24-2023, this was BI-RADS 2 Her Pilar risk evaluation is 1.8%, she has declined chemoprophylaxis; she is not complaining of any new lumps masses or nodules of concern in either breast Pilar risk evaluation: 5 year risk 1.8%; average 1% she has declined chemoprevention. life time risk: 17.3% average 11.9% Tyrer-Cusizk: lifetime risk 22.6% She did have genetic testing and it was (-) Caffeine: rare nicotine: none chocolate: occasional hormones: BCP for endometriosis 4 years consistent now, used them intermittently for many years Family history: Mother: breast cancer at 46 of this at 48 maternal grandmother: ? ovarian cancer maternal great aunt: cancer? type Patient with a history of premalignant colon polyps Hormonal History: menarche: 13 , premature and , age at : 25 periods irregular polycystic ovarian disease patient is intermittently on control pills BCP many years intermittently Surgical history: 1. gallbladder 2. 3. left foot 4. laser surgery bilateral eyes for glaucoma 5. 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 hypothyroid suboccipital neuritis left ovary removed Social history: Nicotine: Negative Alcohol:rare drugs: none - Constitutional Constitutional: Denies chills, Denies fever - EENT Comment: glaucoma Eyes: denies blurred vision, denies pain Ears: deny: decreased hearing, tinnitus Ears, nose, mouth and throat: Reports headache, Denies sore throat - Breasts Breasts: bilateral: as per HPI - Cardiovascular Cardiovascular: Denies chest pain, Denies shortness of breath - Respiratory Respiratory: Denies cough - Gastrointestinal Gastrointestinal: Denies abdominal pain, Denies diarrhea, Denies nausea, Denies vomiting - Genitourinary (Female) Genitourinary: Denies dysuria, Denies hematuria - Menstruation Menstruation: Reports as per HPI - Musculoskeletal Musculoskeletal: Reports myalgias - Integumentary Integumentary: Denies pruritus, Denies rash - Neurological Comment: intermittent numbness in toes and hands Neurological: Denies numbness, Denies weakness - Psychiatric Psychiatric: Reports anxiety, Reports depression - Endocrine Comment: diabetes - Hematologic/Lymphatic Comment: ITP - Allergic/Immunologic Allergic/Immunologic: Reports as per HPI Objective - Constitutional General appearance: Present: cooperative - EENT Eyes: Present: EOMI ENT: Present: hearing grossly normal - Neck Neck: Present: normal ROM - Respiratory Respiratory: bilateral: CTA - Cardiovascular Heart sounds: normal: S1, S2 - Gastrointestinal General gastrointestinal: Present: soft - Integumentary Integumentary: Present: normal turgor - Musculoskeletal Musculoskeletal: Present: gait normal - Psychiatric Psychiatric: Present: A&O x's 3, appropriate affect, intact judgment & insight - Additional findings Additional findings: Breast Exam: BRA: 42C Inspection: bilateral grade 3 ptosis, right breast slightly smaller than left breast, bilateral fungal infection under the breast Palpation: right breast: multi-positional exam no dominant masses or nodules of concern Right axilla: No adenopathy of concern Left breast: Multiple positional exam fibrocystic changes no dominant masses or nodules of concern Left axilla: No adenopathy of concern Assessment and Plan Assessment: Impression: High risk breast cancer Bilateral mammogram 214-24 benign BIRADS 2 Fibrocystic breast changes Close surveillance Pilar Risk 1.8; declined chemoprophylaxis Plan: Bilateral mammogram 1 year Monthly breast self exams Patient to follow up sooner any questions or problems otherwise follow-up after mammogram in a year Alternate MRI with mammogram every 6 months as patient's lifetime risk by Tyrer- Russ's is higher than 20% Follow-up in 6 months after MRI CC: Dr. Heath
[2023-10-10 13:51] VITALS: BP 121/74; PULSE 91; RESP 16; TEMP 97.5
== END ==
LOC: WWCWWP 13:03
PROVIDERS: ATTEND Surgery
DX: N60.11 Diffuse cystic mastopathy of right breast (principal); N60.12 Diffuse cystic mastopathy of left breast; E03.9 Hypothyroidism, unspecified; E11.9 Type 2 diabetes mellitus without complications; F32.A Depression, unspecified; Z87.42 Personal history of other diseases of the female genital tract; Z87.19 Personal history of other diseases of the digestive system; Z79.84 Long term (current) use of oral hypoglycemic drugs; Z80.3 Family history of malignant neoplasm of breast; Z88.1 Allergy status to other antibiotic agents; Z88.0 Allergy status to penicillin; Z79.890 Hormone replacement therapy

== ENCOUNTER → 2024-06-08 | Outpatient (CLI) | payer OTHER ==
[2024-06-08 18:13] LABS: Appearance,Urine Clear (Clear); Bilirubin,Urine Negative (Negative); Blood,Urine Negative (Negative); Color,Urine Yellow; Glucose,Urine (UA) Negative (Negative); Ketones,Urine Negative (Negative); Leukocyte Esterase,Urine Negative (Negative); Nitrite,Urine Negative (Negative); PH, Urine 5.5 (5.0-8.0); Protein,Urine Negative (Negative); Specific Gravity,Urine 1.027 (1.001-1.035); Urobilinogen,Urine <2.0 mg/dL (<2.0)
[2024-06-09 03:28] LABS: Thyroid Peroxidase Antibodies 77.2 U/mL (0.0-33.0)
[2024-06-09 03:45] LABS: Chol/HDL Ratio 3.64 Ratio; Magnesium 1.5 mg/dL (1.5-2.4)
[2024-06-09 03:46] LABS: ALT 21 U/L (8-44); AST 22 U/L (13-35); Albumin 4.3 g/dL (3.8-4.9); Albumin/Globulin Ratio 1.95 Ratio (1.60-3.17); Alkaline Phosphatase 89 U/L (41-126); BUN/Creat Ratio 20.29 Ratio (12.00-20.00); Blood Urea Nitrogen 14.2 mg/dL (9.0-27.0); Calcium 9.4 mg/dL (8.7-10.3); Carbon Dioxide 26.7 mmol/L (21.6-31.8); Chloride 102 mmol/L (96-109); Globulin 2.2 g/dL (1.6-3.3); Glucose 124 mg/dL (70-110); LDL Cholesterol,Calculated 36.5 mg/dL (0.0-131.0); Potassium 3.9 mmol/L (3.5-5.5); Sodium 142 mmol/L (135-145); Total Bilirubin <0.2 mg/dL (0.3-1.2); Total Protein 6.5 g/dL (6.2-8.2)
[2024-06-09 04:32] LABS: Microalbumin Creatinine Ratio <6 mg/g Cr (0-30)
== END | disposition home or self-care (01) ==
LOC: LABWHC1 15:38
PROVIDERS: ATTEND Registered Nurse
CPT/HCPCS: 36415; 80053; 80061; 81003; 82043; 82306; 82570; 83036; 83735; 84443; 84481; 86376; 86800

== ENCOUNTER → 2024-06-20 | Outpatient (CLI) | payer OTHER ==
[2024-06-20 23:10] LABS: Chol/HDL Ratio 2.75 Ratio
[2024-06-20 23:11] LABS: LDL Cholesterol,Calculated 56.7 mg/dL (0.0-131.0)
== END | disposition home or self-care (01) ==
LOC: LABWHC1 08:49
PROVIDERS: ATTEND Family Medicine
DX: E11.9 Type 2 diabetes mellitus without complications (principal); E03.9 Hypothyroidism, unspecified; R53.82 Chronic fatigue, unspecified
CPT/HCPCS: 36415; 80061